=== PATIENT | female | born 1995 | race African-American/Black ===

== ENCOUNTER 2017-11-27 20:12 | Emergency (ER) | payer SELFPAY ==
[2017-11-27] MEDS ORDERED: ONDANSETRON HCL INJ/PF 4 MG/2 ML SDV IV ONE (20:41)
[2017-11-27] MEDS ORDERED: KETOROLAC TROMETHAMINE INJ/PF 30 MG/1 ML SDV IV ONE (20:41)
[2017-11-27] MEDS ORDERED: NORMAL SALINE 1000 ML 1,000 ML IV ONE ×2 (20:41→23:31)
--- NOTE | 2017-11-27 20:44 | ER Document Report ---
ED General - General Chief Complaint: Abdominal Pain Stated Complaint: ABDOMINAL PAIN Time Seen by Provider: 11/27/17 20:31 Mode of Arrival: Medic Information source: Patient Notes: Pt presents complaining of diffuse body muscle cramps and spasms. Pt states pain is worse and most concentrated to her abdominal muscles. Patient denies any new foods or medications. Patient denies any recent illness. Patient states that she does have some nausea but denies any vomiting or diarrhea. Patient denies any fever. Patient does report mild headache pain. Patient does state that she went [facility] the [facility] today for a routine checkup was diagnosed with a UTI. Patient was given an antibiotic and she did get this medication filled although she has not taken this medication yet. Patient denies any concern about sexually transmitted infection. - HPI Onset: Just prior to arrival Onset/Duration: Gradual Quality of pain: Cramping Pain Level: 5 Associated symptoms: Body/muscle aches, Headache, Nausea. denies: Chest pain, Nonproductive cough, Productive cough, Diarrhea, Fever, Vomiting, Shortness of breath Exacerbated by: Movement Relieved by: Denies Similar symptoms previously: No Recently seen / treated by doctor: Yes Past Medical History - General Information source: Patient - Social History Smoking Status: Never Smoker Chew tobacco use (# tins/day): No Frequency of alcohol use: None Drug Abuse: None Occupation: Call center Family History: Reviewed & Not Pertinent Patient has suicidal ideation: No Patient has homicidal ideation: No - Medical History Medical History: Other - Anemia Renal/ Medical History: Denies: Hx Peritoneal Dialysis Past Surgical History: Reports: Hx Gynecologic Surgery Review of Systems - Review of Systems Constitutional: Recent illness - diagnosed with UTI today. denies: Chills, Fever EENT: No symptoms reported Cardiovascular: No symptoms reported. denies: Chest pain Respiratory: No symptoms reported. denies: Cough, Short of breath Gastrointestinal: Abdominal pain, Nausea. denies: Diarrhea, Vomiting Genitourinary: Frequency. denies: Dysuria, Flank pain Female Genitourinary: No symptoms reported. denies: Vaginal discharge, Vaginal bleeding Musculoskeletal: Muscle pain - diffuse Skin: No symptoms reported Hematologic/Lymphatic: No symptoms reported Neurological/Psychological: Headaches. denies: Confusion, Weakness Physical Exam - Vital signs Vitals: Temp Pulse Resp BP Pulse Ox 99.9 F 115 H 18 132/84 H 100 11/27/17 20:19 11/27/17 20:19 11/27/17 20:19 11/27/17 20:19 11/27/17 20:19 - General General appearance: Appears well, Alert In distress: None - HEENT Head: Normocephalic Eyes: Normal Conjunctiva: Normal Nasal: Normal Mouth/Lips: Normal Neck: Normal, Supple. No: Lymphadenopathy - Respiratory Respiratory status: No respiratory distress Chest status: Nontender Breath sounds: Normal Chest palpation: Normal - Cardiovascular Rhythm: Tachycardia Heart sounds: S1 appreciated, S2 appreciated Murmur: No - Abdominal Inspection: Normal Distension: No distension Bowel sounds: Normal Tenderness: Tender Organomegaly: No organomegaly Notes: no visible muscle contractions/spasms - Back Back: Tender - Use of muscle tenderness, no visible muscle spasming - Extremities General upper extremity: Normal inspection, Tender - generalized tenderness, Normal color, Normal strength. No: Edema General lower extremity: Normal inspection, Tender - generalized tenderness, Normal color, Normal strength. No: Edema - Neurological Neuro grossly intact: Yes Cognition: Normal Maria Isabel Coma Scale Eye Opening: Spontaneous Maria Isabel Coma Scale Verbal: Oriented Maria Isabel Coma Scale Motor: Obeys Commands [place] Coma Scale Total: 15 - Psychological Associated symptoms: Normal affect, Normal mood - Skin Skin Temperature: Warm Skin Moisture: Dry Skin Color: Normal Course - Re-evaluation Re-evalutation: 11/27/17 22:44 Patient reports that muscle cramping has improved after the IV fluids. Patient is concerned that she might be dehydrated. Patient advised that based on her laboratory tests that this does not appear to be the case. Patient encouraged to take the antibiotic that she was prescribed today as written. Good return precautions provided to patient. No concern for obstructive uropathy at this time. Patient nontoxic in appearance, no concern for sepsis. 11/27/17 23:31 Patient upset that she did not receive a room and was not evaluated by a physician. Patient feels that her symptoms were not evaluated properly. Patient states that she knew she was anemic and she had a UTI and feels that she has something else going on that was not evaluated. Patient feels that because she came in by ambulance and that she had such muscle spasms that she could not move that it warrants further evaluation than what she received here today. Patient advised that a physician will be by when available to speak with her. Consulted with Dr. Bennett who does agree to speak with patient 11/27/17 23:52 11/27/17 23:[address] Bennett who is with patient's diagnostic evaluation as well as discharge plan of care. Recommends giving patient additional information on pyelonephritis as well as outpatient providers to follow-up with. - Vital Signs Vital signs: Temp Pulse Resp BP Pulse Ox 98.9 F 106 H 18 116/68 100 11/27/17 23:08 11/27/17 23:08 11/27/17 23:08 11/27/17 23:08 11/27/17 23:08 - Laboratory Result Diagrams: 11/27/17 19:35 11/27/17 19:35 Laboratory results interpreted by me: 11/27/17 11/27/17 19:35 20:40 Hgb 9.3 L Hct 29.9 L MCV 62 L MCH 19.2 L MCHC 31.1 L RDW 19.7 H Seg Neutrophils % 84.3 H Lymphocytes % 8.9 L Urine Blood LARGE H Ur Leukocyte Esterase LARGE H Labs- Entire Visit 11/27/17 11/27/17 11/27/17 19:35 19:35 20:40 WBC 7.8 RBC 4.86 Hgb 9.3 L Hct 29.9 L MCV 62 L MCH 19.2 L MCHC 31.1 L RDW 19.7 H Plt Count 212 Seg Neutrophils % 84.3 H Lymphocytes % 8.9 L Monocytes % 6.3 Eosinophils % 0.3 Basophils % 0.2 Absolute Neutrophils 6.6 Absolute Lymphocytes 0.7 Absolute Monocytes 0.5 Absolute Eosinophils 0.0 Absolute Basophils 0.0 Platelet Comment ADEQUATE Hypochromasia 1+ Poikilocytosis 1+ Anisocytosis 2+ Microcytosis 3+ Target Cells 1+ Tear Drop Cells SLIGHT Ovalocytes 1+ Sodium 140.3 Potassium 3.9 Chloride 104 Carbon Dioxide 25 Anion Gap 11 BUN 10 Creatinine 0.66 Est GFR ( Amer) > 60 Est GFR (Non-Af Amer) > 60 Glucose 98 Calcium 9.5 Total Bilirubin 0.4 Direct Bilirubin 0.4 Neonat Total Bilirubin Not Reportable Neonat Direct Bilirubin Not Reportable Neonat Indirect Bili Not Reportable AST 24 ALT 19 Alkaline Phosphatase 74 Creatine Kinase 115 Total Protein 7.7 Albumin 4.4 Lipase 213.9 Urine Color STRAW Urine Appearance SLIGHTLY-CLOUDY Urine pH 8.0 Ur Specific [place] 1.003 Urine Protein NEGATIVE Urine Glucose (UA) NEGATIVE Urine Ketones NEGATIVE Urine Blood LARGE H Urine Nitrite NEGATIVE Urine Bilirubin NEGATIVE Urine Urobilinogen NEGATIVE Ur Leukocyte Esterase LARGE H Urine WBC (Auto) 167 Urine RBC (Auto) 2 Urine Bacteria (Auto) 1+ Squamous Epi Cells Auto 1 Urine Mucus (Auto) RARE Urine Ascorbic Acid NEGATIVE Urine HCG, Qual NEGATIVE Urine Opiates Screen Urine Methadone Screen Ur Barbiturates Screen Ur Phencyclidine Scrn Ur Amphetamines Screen U Benzodiazepines Scrn Urine Cocaine Screen U Marijuana (THC) Screen 11/27/17 20:40 WBC RBC Hgb Hct MCV MCH MCHC RDW Plt Count Seg Neutrophils % Lymphocytes % Monocytes % Eosinophils % Basophils % Absolute Neutrophils Absolute Lymphocytes Absolute Monocytes Absolute Eosinophils Absolute Basophils Platelet Comment Hypochromasia Poikilocytosis Anisocytosis Microcytosis Target Cells Tear Drop Cells Ovalocytes Sodium Potassium Chloride Carbon Dioxide Anion Gap BUN Creatinine Est GFR ( Amer) Est GFR (Non-Af Amer) Glucose Calcium Total Bilirubin Direct Bilirubin Neonat Total Bilirubin Neonat Direct Bilirubin Neonat Indirect Bili AST ALT Alkaline Phosphatase Creatine Kinase Total Protein Albumin Lipase Urine Color Urine Appearance Urine pH Ur Specific [place] Urine Protein Urine Glucose (UA) Urine Ketones Urine Blood Urine Nitrite Urine Bilirubin Urine Urobilinogen Ur Leukocyte Esterase Urine WBC (Auto) Urine RBC (Auto) Urine Bacteria (Auto) Squamous Epi Cells Auto Urine Mucus (Auto) Urine Ascorbic Acid Urine HCG, Qual Urine Opiates Screen NEGATIVE Urine Methadone Screen NEGATIVE Ur Barbiturates Screen NEGATIVE Ur Phencyclidine Scrn NEGATIVE Ur Amphetamines Screen NEGATIVE U Benzodiazepines Scrn NEGATIVE Urine Cocaine Screen NEGATIVE U Marijuana (THC) Screen NEGATIVE Discharge - Discharge Clinical Impression: Muscle cramps, Nausea, Pyelonephritis UTI (urinary tract infection) Qualifiers: Urinary tract infection type: site unspecified Hematuria presence: with hematuria Qualified Code(s): N39.0 - Urinary tract infection, site not specified Anemia Qualifiers: Anemia type: unspecified type Qualified Code(s): D64.9 - Anemia, unspecified Condition: Stable Disposition: HOME, SELF-CARE Instructions: Anemia ([facility]), Cephalexin ([facility]), Myalagia (Muscle Pain) ([facility]), Nausea or Vomiting, Nonspecific ([facility]), Pyelonephritis ([facility]), Rocephin ([facility]), Urinary Tract Infection ([facility]) Additional Instructions: Return immediately for any new or worsening symptoms Followup with your primary care provider, call tomorrow to make a followup appointment. Your doctor can reevaluate your anemia, call Thursday for an appointment. Stay well-hydrated Prescriptions: Cephalexin Monohydrate [Keflex 500 mg Capsule] 500 mg PO Q6H 7 Days capsule Naproxen [Naprosyn 250 Nmg Tablet] 1 tab PO BID #14 tablet Promethazine HCl [Phenergan 25 mg Tablet] 25 mg PO Q6H PRN #10 tablet PRN Reason: Forms: Return to Work Referrals: [facility] [Provider Group] - Follow up as needed [facility] [Provider Group] - Follow up as needed
[2017-11-27 20:56] LABS: ABSOLUTE LYMPHOCYTES (AUTO) 0.7 10^3/uL (0.5-4.7); ABSOLUTE MONOCYTES (AUTO) 0.5 10^3/uL (0.1-1.4); ABSOLUTE NEUT (AUTO) 6.6 10^3/uL (1.7-8.2); BASOPHILS % (AUTO) 0.2 % (0-2); EOSINOPHILS % (AUTO) 0.3 % (0-6); HEMATOCRIT 29.9 % (36.0-47.0); HEMOGLOBIN 9.3 g/dL (12.0-15.5); LYMPHOCYTES % (AUTO) 8.9 % (13-45); MEAN CORPUSCULAR HEMOGLOBIN 19.2 pg (27.0-33.4); MEAN CORPUSCULAR HGB CONC 31.1 g/dL (32.0-36.0); MONOCYTES % (AUTO) 6.3 % (3-13); PLATELET COUNT 212 10^3/uL (150-450); RED BLOOD COUNT 4.86 10^6/uL (3.72-5.28); RED CELL DISTRIBUTION WIDTH 19.7 % (11.5-14.0); SEGMENTED NEUTROPHILS % (AUTO) 84.3 % (42-78); TOTAL CELLS COUNTED % (AUTO) 100 %; WHITE BLOOD COUNT 7.8 10^3/uL (4.0-10.5)
[2017-11-27 21:13] LABS: ANISOCYTOSIS 2+; HYPOCHROMASIA 1+; OVALOCYTES 1+; PLATELET COMMENT ADEQUATE; POIKILOCYTOSIS 1+; TARGET CELLS 1+; TEAR DROP CELLS SLIGHT
[2017-11-27 21:14] LABS: MEAN CORPUSCULAR VOLUME 62 fl (80-97)
[2017-11-27 21:25] LABS: ALANINE AMINOTRANSFERASE 19 U/L (9-52); ALBUMIN 4.4 g/dL (3.5-5.0); ALKALINE PHOSPHATASE 74 U/L (38-126); ANION GAP 11 (5-19); ASPARTATE AMINO TRANSFERASE 24 U/L (14-36); BILIRUBIN,DIRECT 0.4 mg/dL (0.0-0.4); BILIRUBIN,TOTAL 0.4 mg/dL (0.2-1.3); BLOOD UREA NITROGEN 10 mg/dL (7-20); CALCIUM 9.5 mg/dL (8.4-10.2); CARBON DIOXIDE 25 mmol/L (22-30); CHLORIDE 104 mmol/L (98-107); CREATINE KINASE 115 U/L (30-135); GLUCOSE 98 mg/dL (75-110); LIPASE 213.9 U/L (23-300); POTASSIUM 3.9 mmol/L (3.6-5.0); SODIUM 140.3 mmol/L (137-145); TOTAL PROTEIN 7.7 g/dL (6.3-8.2)
[2017-11-27 21:47] LABS: APPEARANCE,URINE SLIGHTLY-CLOUDY; BILIRUBIN,URINE NEGATIVE (NEGATIVE); COLOR,URINE STRAW; GLUCOSE, URINE NEGATIVE (NEGATIVE); KETONES,URINE NEGATIVE (NEGATIVE); LEUKOCYTE ESTERASE,URINE LARGE (NEGATIVE); NITRITE,URINE NEGATIVE (NEGATIVE); PROTEIN,URINE NEGATIVE (NEGATIVE); URINE SPECIFIC GRAVITY 1.003; UROBILINOGEN,URINE NEGATIVE mg/dL (<2.0)
[2017-11-27 21:58] LABS: URINE AMPHETAMINES SCREEN NEGATIVE; URINE BARBITURATES SCREEN NEGATIVE; URINE BENZODIAZEPINES SCREEN NEGATIVE; URINE COCAINE SCREEN NEGATIVE; URINE MARIJUANA (THC) SCREEN NEGATIVE; URINE METHADONE SCREEN NEGATIVE; URINE PHENCYCLIDINE SCREEN NEGATIVE
[2017-11-27] MEDS ORDERED: CEFTRIAXONE INJ 1000 MG VIAL IV ONE (22:28)
[2017-11-28 02:36] VITALS: BP 116/68
[2017-11-30 14:00] LABS: PATH REVIEW PATHOLOGIST REVIEWED
== END 2017-11-28 00:15 | disposition home or self-care (01) ==
LOC: ER 20:12
DX: N12 Tubulo-interstitial nephritis, not specified as acute or chronic (principal); N39.0 Urinary tract infection, site not specified; D64.9 Anemia, unspecified; R25.2 Cramp and spasm; R11.0 Nausea; R10.9 Unspecified abdominal pain; R51 Headache
CPT/HCPCS: 36415; 87086; 82550; 83690; 85025; 81025; 87088; 80053; 81001; 87186; 80307; J1885; J0696; J2405; J7030